=== PATIENT | female | born 1945 | race Caucasian/White ===

== ENCOUNTER 2020-03-29 14:35 | Outpatient (CLI) | payer MEDICARE ==
--- NOTE | 2020-03-29 15:41 | MRI ---
MRI Lumbar Spine Noncontrast: HISTORY: Spinal stenosis, lumbar region. Patient complains of chronic low back pain and bilateral leg pain. COMPARISON: None FINDINGS: The visualized retroperitoneal structures demonstrate a normal appearance. Conus medullaris is normal in morphology and terminates at the L1 level. Midline incision low back is present. Postoperative changes are seen involving the lower lumbar spine with metallic susceptibility artifact at the L4-5 level related to bipedicular screws and posterior rods transfixing this level. There is an incompletely imaged area of increased T2 and corresponding decreased T1-weighted signal i ntensity in the left iliac bone at the level of the sacroiliac joint. This could be related to postoperative changes and prior bone harvest site, but clinical correlation is recommended as this is incompletely imaged. L1-2: Mild disc osteophyte complex is present. Central spinal canal and neural foramina are patent. L2-3: Minimal disc osteophyte complex, facet hypertrophic changes, and ligamentous thickening. There is no significant central canal or left neural foraminal narrowing, but there is mild narrowing of the inferior aspect of the right neural foramen. L3-4: Grade 1 anterolisthesis at this level measuring approximately 6 mm. Broad-based disc osteophyte complex is present with prominent ligamentous thickening. Findings result in severe central canal narrowing at this level with severe narrowing of the lateral recesses. Mild to moderate right and mil d left-sided neural foraminal narrowing are present. L4-5: Level of postoperative changes related to posterior fusion. Laminectomy defects are present at this level. There does appear to be trace anterolisthesis of L4 on L5. Loss of intervertebral disc height is present with minimal disc osteophyte complex present. Central spinal canal at this level is patent. Neural foramina also appear patent at this level. L5-S1: Minimal disc osteophyte complex with tiny annular tear involving the right posterolateral aspe ct of the disc margin. Neural foramina are patent. IMPRESSION: 1. Prominent degenerative changes at the L3-4 level with grade 1 anterolisthesis of L3 on L4. Finding s result in severe central canal narrowing as well as appears to be severe narrowing of the subarticular zones. 2. Postoperative changes L4-5 level related to posterior fusion. 3. T2 hyperintense signal abnormality in the left iliac bone adjacent to the level of the sacroiliac joint which may be related to prior bone harvest site. However, if the patient has not had prior surgery in this region, CT scan pelvis is suggested for further evaluation.
== END 2020-03-29 14:36 | disposition home or self-care (01) ==
LOC: TBSIIMAG 14:35
PROVIDERS: ATTEND Nurse Practitioner Family
DX: M48.062 Spinal stenosis, lumbar region with neurogenic claudication (principal); M47.816 Spondylosis without myelopathy or radiculopathy, lumbar region; M43.16 Spondylolisthesis, lumbar region; Z98.890 Other specified postprocedural states
CPT/HCPCS: 72148

== ENCOUNTER 2020-05-24 13:26 | Outpatient (CLI) | payer MEDICARE | END 2020-05-24 13:27 | disposition home or self-care (01) | LOC: TBSIIMAG 13:26 | PROVIDERS: ATTEND Surgery | DX: M54.16 Radiculopathy, lumbar region (principal); M43.16 Spondylolisthesis, lumbar region; M48.061 Spinal stenosis, lumbar region without neurogenic claudication; Z98.1 Arthrodesis status | CPT/HCPCS: 72131 ==

== ENCOUNTER 2020-06-28 08:38 | Outpatient (CLI) | payer MEDICARE ==
[2020-06-28 10:35] LABS: Hemoglobin 12.9 g/dL (12.0-15.5); Mean Corpuscular Volume 90.2 fl (81.6-98.3); Mean Platelet Volume 12.3 fl (7.4-10.4); Platelet Count 122 10x3/uL (150-450); RBC Distribution Width 14.5 % (11.5-14.5); Red Blood Cell (RBC) Count 4.61 10x6/uL (3.90-5.03); White Blood Cell (WBC) Count 3.5 10x3/uL (3.5-10.5)
[2020-06-28 10:50] LABS: INR-International Normal Ratio 1.1; PTT 33.4 sec (22.0-33.0); Prothrombin Time 11.8 sec (9.5-12.1)
[2020-06-28 11:18] LABS: Calcium 9.3 mg/dL (7.8-10.44); Chloride 103 mmol/L (98-107); Glucose 64 mg/dL (83-110); Potassium 4.3 mmol/L (3.5-5.1); Sodium 142 mmol/L (136-145)
[2020-06-28 11:30] LABS: Anion Gap 15 mmol/L (10-20); BUN (Urea Nitrogen) 26 mg/dL (9.8-20.1); Calc. Creatinine Clearance 0 mL/min (70-130); Carbon Dioxide 28 mmol/L (23-31)
[2020-06-28 21:52] LABS: SARS-CoV-2 PCR by NAA Not Detected (NotDetected)
== END 2020-06-28 08:39 | disposition home or self-care (01) ==
LOC: LABBT 08:38
PROVIDERS: ATTEND Surgery
DX: Z01.818 Encounter for other preprocedural examination (principal); M48.062 Spinal stenosis, lumbar region with neurogenic claudication; M43.16 Spondylolisthesis, lumbar region; Z20.822 Contact with and (suspected) exposure to COVID-19
CPT/HCPCS: 80048; 85027; 85610; 85730; 93005; U0003; U0005; 87635; 93010

== ENCOUNTER 2020-07-02 07:42 | Day surgery (SDC) | payer MEDICARE ==
[2020-07-02] MEDS ORDERED: Lidocaine 1% PF 5 ML VIAL ONE (09:05)
[2020-07-02] MEDS ORDERED: Ketorolac Tromethamine 30 MG/ML VIAL ONE (09:05)
[2020-07-02] MEDS ORDERED: PHENYLEPHRINE-NS 100 MCG/ML 10 ML SYRINGE ONE (09:05)
[2020-07-02] MEDS ORDERED: Dexamethasone 20 MG/5 ML VIAL ONE (09:05)
[2020-07-02] MEDS ORDERED: PROPOFOL 200 MG/20 ML VIAL ONE (09:05)
[2020-07-02] MEDS ORDERED: Rocuronium Bromide 10 MG/ML (10ML VIAL) ONE (09:05)
[2020-07-02] MEDS ORDERED: Ondansetron PF 4 MG/2 ML Vial ONE (09:05)
[2020-07-02] MEDS ORDERED: Thrombin 5000 UNITS/5 ML VIAL ONE (09:30)
[2020-07-02] MEDS ORDERED: Fentanyl 100 MCG/2 ML VIAL ONE ×2 (11:37→13:15)
[2020-07-02] MEDS ORDERED: SUGAMMADEX SODIUM 200 MG/2 ML VIAL ONE (12:49)
[2020-07-02] MEDS ORDERED: Bisacodyl 10 MG SUPP PR PRN (13:07)
[2020-07-02] MEDS ORDERED: Acetaminophen 325 MG TAB PO PRN (13:07)
[2020-07-02] MEDS ORDERED: Morphine 2 MG/ML VIAL SLOW IVP PRN (13:07)
[2020-07-02] MEDS ORDERED: Milk Of Magnesia 30 ML UDCUP PO PRN (13:07)
[2020-07-02] MEDS ORDERED: Mag-Al 1200 mg/1200 mg/30 ML UDCUP PO PRN (13:07)
[2020-07-02] MEDS ORDERED: tiZANidine HCl 4 MG TAB PO PRN (13:07)
[2020-07-02] MEDS ORDERED: traMADol HCl 50 MG TAB PO PRN (13:07)
[2020-07-02] MEDS ORDERED: Acetaminophen/Codeine 30-300mg Tablet PO PRN (13:07)
[2020-07-02] MEDS ORDERED: Morphine Sulfate 2 MG/ML SYRINGE SLOW IVP PRN (13:26)
[2020-07-02] MEDS ORDERED: PACU-Morphine 4MG/ML VIAL SLOW IVP PRN (13:26)
[2020-07-02] MEDS ORDERED: Promethazine HCl 25 MG/ML VIAL SLOW IVP PRN (13:26)
[2020-07-02] MEDS ORDERED: HYDROmorphone 2 MG/ML VIAL SLOW IVP PRN (13:26)
[2020-07-02] MEDS ORDERED: Ondansetron HCl/PF 4 MG/2 ML Vial IVP PRN (13:26)
[2020-07-02] MEDS ORDERED: Promethazine HCl 25 MG/ML VIAL IM PRN (13:26)
[2020-07-02 15:22] VITALS: BMI 22.8
[2020-07-02] MEDS: Sodium Chloride 0.9% 1,000 ML IV SCH (15:58)
[2020-07-02] MEDS: HYDROcodone/Acetaminophen 7.5/325 mg Tablet PO PRN ×2 (16:03→20:54)
[2020-07-02] MEDS: CEFAZOLIN 2 GM in Premix Bag 1 BAG IVPB SCH (18:41)
[2020-07-02] MEDS: Mometasone 100 MCG/PUFF (1 INHALER) INH SCH (19:06)
[2020-07-02] MEDS: Pregabalin 75 MG CAP PO SCH (20:56)
[2020-07-03] MEDS: CEFAZOLIN 2 GM in Premix Bag 1 BAG IVPB SCH (01:48)
[2020-07-03] MEDS: Sodium Chloride 0.9% 1,000 ML IV SCH (03:45)
[2020-07-03] MEDS: Mometasone 100 MCG/PUFF (1 INHALER) INH SCH (07:12)
[2020-07-03 07:19] VITALS: BP 150/76; TEMP 98
[2020-07-03] MEDS: Pregabalin 75 MG CAP PO SCH (07:53)
[2020-07-03] MEDS: HYDROcodone/Acetaminophen 7.5/325 mg Tablet PO PRN (07:54)
[2020-07-03] MEDS ORDERED: DULoxetine 30 MG CAP PO SCH (09:00)
== END 2020-07-03 11:06 | disposition home or self-care (01) ==
LOC: SDC 07:42 → T4-B 13:07 → SDC 07-03 11:06
PROVIDERS: ATTEND Surgery
PROC: 01NB0ZZ Release Lumbar Nerve, Open Approach (ICD-10-PCS; principal; 2020-07-02)
DX: M48.062 Spinal stenosis, lumbar region with neurogenic claudication (principal); Z79.899 Other long term (current) drug therapy; Z88.1 Allergy status to other antibiotic agents; Z98.1 Arthrodesis status
CPT/HCPCS: 76000; 94640; J0690; J1100; J1885; J2405; J2704; J3010; J3370; J7620

== ENCOUNTER 2021-01-09 15:18 | Outpatient (CLI) | payer MEDICARE | END 2021-01-09 15:19 | disposition home or self-care (01) | LOC: BICMAMMO 15:18 | PROVIDERS: ATTEND Family Medicine | DX: Z12.31 Encounter for screening mammogram for malignant neoplasm of breast (principal) | CPT/HCPCS: 77063; 77067 ==

== ENCOUNTER 2021-10-24 13:12 | Inpatient (IN) | payer MEDICARE ==
[2021-10-24] MEDS ORDERED: cefTRIAXone\\ROCEPHIN 1 GM VIAL ONE (13:28)
[2021-10-24 14:05] LABS: Hemoglobin 11.7 g/dL (12.0-16.0); Mean Corpuscular HGB CONC 31.4 g/dL (32.0-36.0); Mean Corpuscular Volume 95.6 fL (78.0-98.0); Mean Platelet Volume 10.3 fL (7.4-10.4); Platelet Count 167 thou/uL (130-400); White Blood Cell (WBC) Count 24.2 thou/uL (4.8-10.8)
[2021-10-24 14:23] LABS: ALT (SGPT) 34 U/L (8-55); AST (SGOT) 49 U/L (5-34); Albumin 3.9 g/dL (3.4-4.8); Alkaline Phosphatase 105 U/L (40-110); Anion Gap 18 mmol/L (10-20); BUN (Urea Nitrogen) 44 mg/dL (9.8-20.1); Bilirubin, Total 1.5 mg/dL (0.2-1.2); Calc. Creatinine Clearance 0 mL/min (70-130); Calcium 9.7 mg/dL (7.8-10.44); Carbon Dioxide 19 mmol/L (23-31); Chloride 106 mmol/L (98-107); Estimated GFR 42; Globulin 3.3 g/dL (2.4-3.5); Glucose 94 mg/dL (83-110); Lipase 12 U/L (8-78); Potassium 4.2 mmol/L (3.5-5.1); Protein, Total 7.2 g/dL (5.8-8.1); Sodium 139 mmol/L (136-145)
[2021-10-24 14:27] LABS: Band 8 % (5-11); Eosinophils 6 % (0-10); Lymphocytes 1 % (21-51); MDiff Complete? YES; Monocytes 9 % (0-10); Myelocyte 1 % (0-0); Neutrophil 70 % (42-75); Platelet Morphology Comment Appears Adequate; Polychromasia SLIGHT = 2-3 cells (100X) (0-2/hpf); Reactive Lymphocytes 5 % (0-10)
[2021-10-24] MEDS ORDERED: Azithromycin 500 MG VIAL ONE (14:32)
[2021-10-24 15:45] LABS: SARS-CoV-2 NAA Rapid Test Not Detected (NotDetected)
[2021-10-24 17:00] LABS: Lactic Acid 2.2 mmol/L (0.5-2.2)
[2021-10-24] MEDS ORDERED: Bisacodyl 5 MG TAB PO PRN (21:40)
[2021-10-24] MEDS ORDERED: Calcium Carbonate 500 MG ChewTAB PO PRN (21:40)
[2021-10-24] MEDS ORDERED: Senokot S 8.6-50 MG TAB PO PRN (21:40)
[2021-10-24] MEDS ORDERED: VANCOMYCIN 1.25 GM/250 ML BAG 1.25 GM in Premix Bag 1 BAG IVPB SCH (22:00)
[2021-10-24 22:08] LABS: Hemoglobin 10.6 g/dL (12.0-16.0); Mean Corpuscular HGB CONC 30.5 g/dL (32.0-36.0); Mean Corpuscular Hemoglobin 29.2 pg (27.0-31.0); Mean Corpuscular Volume 95.8 fL (78.0-98.0); Mean Platelet Volume 9.4 fL (7.4-10.4); Platelet Count 158 thou/uL (130-400); Red Blood Cell (RBC) Count 3.61 mill/uL (4.20-5.40); White Blood Cell (WBC) Count 23.4 thou/uL (4.8-10.8)
[2021-10-24 22:28] LABS: ALT (SGPT) 31 U/L (8-55); AST (SGOT) 42 U/L (5-34); Albumin 3.5 g/dL (3.4-4.8); Alkaline Phosphatase 102 U/L (40-110); Anion Gap 14 mmol/L (10-20); BUN (Urea Nitrogen) 37 mg/dL (9.8-20.1); Bilirubin, Total 1.1 mg/dL (0.2-1.2); Calc. Creatinine Clearance 46 mL/min (70-130); Calcium 8.7 mg/dL (7.8-10.44); Carbon Dioxide 23 mmol/L (23-31); Chloride 107 mmol/L (98-107); Estimated GFR 59; Globulin 3.1 g/dL (2.4-3.5); Glucose 113 mg/dL (83-110); Protein, Total 6.6 g/dL (5.8-8.1); Sodium 140 mmol/L (136-145)
[2021-10-24 22:29] LABS: Band 8 % (5-11); Eosinophils 3 % (0-10); Lymphocytes 3 % (21-51); MDiff Complete? YES; Monocytes 9 % (0-10); Neutrophil 76 % (42-75); Reactive Lymphocytes 1 % (0-10)
[2021-10-25] MEDS: Cefepime 2 GM in Sodium Chloride 0.9% 100 ML IVPB SCH ×3 (01:07→23:09)
[2021-10-25] MEDS: methylPREDNISolone Sod Succ 40 MG VIAL IVP SCH ×4 (02:22→19:24)
[2021-10-25 06:06] LABS: Hemoglobin 11.3 g/dL (12.0-16.0); Mean Corpuscular HGB CONC 30.8 g/dL (32.0-36.0); Mean Corpuscular Volume 97.4 fL (78.0-98.0); Mean Platelet Volume 9.9 fL (7.4-10.4); Platelet Count 130 thou/uL (130-400); RBC Distribution Width 13.2 % (11.5-14.5); Red Blood Cell (RBC) Count 3.77 mill/uL (4.20-5.40); White Blood Cell (WBC) Count 22.7 thou/uL (4.8-10.8)
[2021-10-25 06:09] LABS: Band 7 % (5-11); Eosinophils 1 % (0-10); Lymphocytes 2 % (21-51); MDiff Complete? YES; Monocytes 4 % (0-10); Neutrophil 86 % (42-75)
[2021-10-25 06:13] LABS: Anion Gap 19 mmol/L (10-20); BUN (Urea Nitrogen) 24 mg/dL (9.8-20.1); Calc. Creatinine Clearance 60 mL/min (70-130); Calcium 8.5 mg/dL (7.8-10.44); Carbon Dioxide 13 mmol/L (23-31); Chloride 111 mmol/L (98-107); Estimated GFR 81; Glucose 103 mg/dL (83-110); Potassium 5.5 mmol/L (3.5-5.1); Sodium 137 mmol/L (136-145)
[2021-10-25] MEDS: Enoxaparin Sodium 40 MG/0.4 ML SYRINGE SC SCH (08:40)
[2021-10-25] MEDS ORDERED: Vancomycin HCl 1 GM in Sodium Chloride 0.9% 250 ML 300 ML IVPB SCH (09:00)
[2021-10-25 10:53] LABS: Actual Bicarbonate (HCO3a) 20.2 mEq/L (22-28); Base Excess (BEa) -4.1 mEq/L (-2.0 to +3.0); CO2 Tension 34.1 mmHg (35.0-45.0); Calcium, Ionized (arterial) 1.15 mmol/L (1.12-1.30); Carboxyhemoglobin (COHb) 0.2 gm% (0.0-3.0); pH, Arterial 7.39 (7.35-7.45)
[2021-10-25] MEDS: Sodium Chloride 0.45% 1,000 ML IV SCH ×2 (11:15→19:38)
[2021-10-25 11:54] LABS: O2 Tension (PaO2), arterial 43.7 mmHg (> 70.0)
[2021-10-25 11:55] LABS: ALV-art Gradient 227.395 mmHg (0-20); Puncture Site LRA
[2021-10-25] MEDS: HYDROcodone/Acetaminophen 5/325 mg Tablet PO PRN ×2 (12:32→21:12)
[2021-10-25] MEDS: Azithromycin 500 MG in Sodium Chloride 0.9% 250 ML 250 ML IVPB SCH (15:59)
[2021-10-25] MEDS ORDERED: Vancomycin HCl 750 MG in Sodium Chloride 0.9% 250 ML 250 ML IVPB SCH (20:00)
[2021-10-26] MEDS: methylPREDNISolone Sod Succ 40 MG VIAL IVP SCH ×4 (01:48→20:53)
[2021-10-26 03:48] LABS: Actual Bicarbonate (HCO3a) 20.6 mEq/L (22-28); CO2 Tension 31.9 mmHg (35.0-45.0); Calcium, Ionized (arterial) 1.17 mmol/L (1.12-1.30); Carboxyhemoglobin (COHb) 0.2 gm% (0.0-3.0); Hemoglobin (Hb) 11.2 g/dL (12.0-16.0); O2 Tension (PaO2), arterial 71.5 mmHg (> 70.0); Potassium - ABG Lab 3.51 mmol/L (3.70-5.30); pH, Arterial 7.43 (7.35-7.45)
[2021-10-26 03:49] LABS: ALV-art Gradient 387.725 mmHg (0-20); Puncture Site RRA
[2021-10-26 04:16] LABS: Anion Gap 16 mmol/L (10-20); BUN (Urea Nitrogen) 19 mg/dL (9.8-20.1); Calc. Creatinine Clearance 79 mL/min (70-130); Calcium 8.7 mg/dL (7.8-10.44); Carbon Dioxide 21 mmol/L (23-31); Chloride 110 mmol/L (98-107); Estimated GFR 93; Glucose 145 mg/dL (83-110); Magnesium 1.7 mg/dL (1.6-2.6); Potassium 3.6 mmol/L (3.5-5.1); Sodium 143 mmol/L (136-145)
[2021-10-26] MEDS: Sodium Chloride 0.45% 1,000 ML IV SCH ×3 (04:26→21:37)
[2021-10-26 06:30] LABS: Band 28 % (5-11); Hemoglobin 10.4 g/dL (12.0-16.0); Lymphocytes 6 % (21-51); MDiff Complete? YES; Mean Corpuscular Hemoglobin 30.7 pg (27.0-31.0); Mean Corpuscular Volume 93.1 fL (78.0-98.0); Mean Platelet Volume 9.3 fL (7.4-10.4); Monocytes 6 % (0-10); Neutrophil 60 % (42-75); Platelet Count 196 thou/uL (130-400); RBC Distribution Width 12.7 % (11.5-14.5); Red Blood Cell (RBC) Count 3.39 mill/uL (4.20-5.40)
[2021-10-26] MEDS ORDERED: Propofol 1,000 MG/100 ML VIAL IV ONE (07:11)
[2021-10-26] MEDS ORDERED: Midazolam HCl 2 mg/2 ml Vial ONE (07:26)
[2021-10-26] MEDS ORDERED: Midazolam HCl 2 mg/2 ml Vial IVP SCH (08:00)
[2021-10-26] MEDS ORDERED: Fentanyl BOLUS 250 ML IVPB PRN (08:00)
[2021-10-26] MEDS ORDERED: Morphine 4 MG/ML VIAL SLOW IVP PRN (08:00)
[2021-10-26] MEDS ORDERED: Lorazepam 2 MG/ML VIAL SLOW IVP PRN (08:00)
[2021-10-26] MEDS ORDERED: Propofol BOLUS 1,000 MG/100 ML VIAL IV PRN (08:00)
[2021-10-26] MEDS ORDERED: DISCONTINUE PREVIOUS NARCOTIC PAIN MEDICATIONS AND BENZODIAZEPINES FS SCH (08:00)
[2021-10-26 08:21] LABS: Actual Bicarbonate (HCO3a) 18.4 mEq/L (22-28); Base Excess (BEa) -6.1 mEq/L (-2.0 to +3.0); CO2 Tension 33.7 mmHg (35.0-45.0); Calcium, Ionized (arterial) 1.18 mmol/L (1.12-1.30); Carboxyhemoglobin (COHb) 0.7 gm% (0.0-3.0); Hemoglobin (Hb) 14.7 g/dL (12.0-16.0); O2 Tension (PaO2), arterial 72.6 mmHg (> 70.0); Potassium - ABG Lab 3.73 mmol/L (3.70-5.30); pH, Arterial 7.36 (7.35-7.45)
[2021-10-26 08:26] LABS: Puncture Site RRA
[2021-10-26 08:27] LABS: ALV-art Gradient 491.325 mmHg (0-20)
[2021-10-26] MEDS: Enoxaparin Sodium 40 MG/0.4 ML SYRINGE SC SCH (09:56)
[2021-10-26] MEDS ORDERED: Morphine 2 MG/ML VIAL SLOW IVP PRN (11:15)
[2021-10-26] MEDS: Fentanyl CADD 100 ML IV SCH (11:36)
[2021-10-26] MEDS: Cefepime 2 GM in Sodium Chloride 0.9% 100 ML IVPB SCH ×2 (12:02→23:30)
[2021-10-26] MEDS: Azithromycin 500 MG in Sodium Chloride 0.9% 250 ML 250 ML IVPB SCH (15:36)
[2021-10-26 19:09] LABS: Vancomycin, Trough 4.1 ug/mL
[2021-10-26] MEDS: Vancomycin HCl 750 MG in Sodium Chloride 0.9% 250 ML 250 ML IVPB SCH (20:53)
[2021-10-27] MEDS: methylPREDNISolone Sod Succ 40 MG VIAL IVP SCH ×4 (01:09→19:52)
[2021-10-27] MEDS: Propofol 1,000 MG/100 ML VIAL IV PRN ×3 (02:05→18:20)
[2021-10-27] MEDS: Sodium Chloride 0.45% 1,000 ML IV SCH ×3 (05:31→18:19)
[2021-10-27] MEDS: Enoxaparin Sodium 40 MG/0.4 ML SYRINGE SC SCH (08:08)
[2021-10-27] MEDS: Vancomycin HCl 750 MG in Sodium Chloride 0.9% 250 ML 250 ML IVPB SCH (08:09)
[2021-10-27 08:42] LABS: Anion Gap 14 mmol/L (10-20); BUN (Urea Nitrogen) 19 mg/dL (9.8-20.1); Calc. Creatinine Clearance 83 mL/min (70-130); Calcium 8.6 mg/dL (7.8-10.44); Carbon Dioxide 19 mmol/L (23-31); Chloride 109 mmol/L (98-107); Estimated GFR 92; Glucose 143 mg/dL (83-110); Potassium 3.9 mmol/L (3.5-5.1); Sodium 138 mmol/L (136-145)
[2021-10-27 08:55] LABS: Band 14 % (5-11); Hemoglobin 9.3 g/dL (12.0-16.0); Hypochromia SLIGHT = 6-15 cells (100X) (0-5/hpf); Lymphocytes 2 % (21-51); MDiff Complete? YES; Mean Corpuscular HGB CONC 30.9 g/dL (32.0-36.0); Mean Corpuscular Hemoglobin 29.3 pg (27.0-31.0); Mean Corpuscular Volume 94.9 fL (78.0-98.0); Mean Platelet Volume 9.1 fL (7.4-10.4); Monocytes 5 % (0-10); Neutrophil 78 % (42-75); Nucleated RBC 1 % (0); Platelet Count 169 thou/uL (130-400); Platelet Morphology Comment Appears Adequate; Polychromasia MODERATE = 3-4 cells (100X) (0-2/hpf); RBC Distribution Width 12.9 % (11.5-14.5); Reactive Lymphocytes 1 % (0-10); Red Blood Cell (RBC) Count 3.17 mill/uL (4.20-5.40); White Blood Cell (WBC) Count 19.5 thou/uL (4.8-10.8)
[2021-10-27] MEDS: Cefepime 2 GM in Sodium Chloride 0.9% 100 ML IVPB SCH ×2 (12:08→19:52)
[2021-10-27] MEDS ORDERED: Fentanyl CADD 100 ML ONE (16:40)
[2021-10-27] MEDS: Azithromycin 500 MG in Sodium Chloride 0.9% 250 ML 250 ML IVPB SCH (16:43)
[2021-10-28] MEDS: Propofol 1,000 MG/100 ML VIAL IV PRN ×3 (02:08→17:47)
[2021-10-28] MEDS: methylPREDNISolone Sod Succ 40 MG VIAL IVP SCH ×4 (02:08→20:38)
[2021-10-28] MEDS: Cefepime 2 GM in Sodium Chloride 0.9% 100 ML IVPB SCH ×3 (03:12→20:37)
[2021-10-28] MEDS: Sodium Chloride 0.45% 1,000 ML IV SCH ×2 (03:49→09:02)
[2021-10-28 06:59] LABS: Anion Gap 13 mmol/L (10-20); BUN (Urea Nitrogen) 25 mg/dL (9.8-20.1); Calc. Creatinine Clearance 86 mL/min (70-130); Calcium 8.6 mg/dL (7.8-10.44); Carbon Dioxide 19 mmol/L (23-31); Chloride 111 mmol/L (98-107); Estimated GFR 92; Glucose 162 mg/dL (83-110); Potassium 3.8 mmol/L (3.5-5.1); Sodium 139 mmol/L (136-145)
[2021-10-28 07:05] LABS: Band 4 % (5-11); Lymphocytes 36 % (21-51); MDiff Complete? YES; Mean Corpuscular HGB CONC 33.7 g/dL (32.0-36.0); Mean Corpuscular Hemoglobin 31.4 pg (27.0-31.0); Mean Platelet Volume 9.4 fL (7.4-10.4); Monocytes 4 % (0-10); Neutrophil 55 % (42-75); Platelet Count 162 thou/uL (130-400); Promyelocytes 1 % (0-0); RBC Distribution Width 13.1 % (11.5-14.5); Red Blood Cell (RBC) Count 2.85 mill/uL (4.20-5.40); White Blood Cell (WBC) Count 26.3 thou/uL (4.8-10.8)
[2021-10-28] MEDS: Enoxaparin Sodium 40 MG/0.4 ML SYRINGE SC SCH (09:02)
[2021-10-28] MEDS: Pantoprazole 40 MG VIAL IVP SCH (09:02)
[2021-10-28] MEDS: Azithromycin 500 MG in Sodium Chloride 0.9% 250 ML 250 ML IVPB SCH (15:53)
[2021-10-28] MEDS ORDERED: Midazolam HCl 2 mg/2 ml Vial SLOW IVP PRN (16:45)
[2021-10-29] MEDS: Propofol 1,000 MG/100 ML VIAL IV PRN ×3 (01:43→17:41)
[2021-10-29] MEDS: methylPREDNISolone Sod Succ 40 MG VIAL IVP SCH ×4 (01:43→21:19)
[2021-10-29] MEDS: Sodium Chloride 0.45% 1,000 ML IV SCH (03:17)
[2021-10-29] MEDS: Cefepime 2 GM in Sodium Chloride 0.9% 100 ML IVPB SCH ×3 (03:17→21:19)
[2021-10-29 04:11] LABS: Anion Gap 13 mmol/L (10-20); BUN (Urea Nitrogen) 22 mg/dL (9.8-20.1); Calc. Creatinine Clearance 94 mL/min (70-130); Calcium 8.1 mg/dL (7.8-10.44); Carbon Dioxide 23 mmol/L (23-31); Chloride 109 mmol/L (98-107); Estimated GFR 94; Glucose 133 mg/dL (83-110); Potassium 3.8 mmol/L (3.5-5.1); Sodium 141 mmol/L (136-145)
[2021-10-29 04:36] LABS: Band 18 % (5-11); Hemoglobin 10.2 g/dL (12.0-16.0); MDiff Complete? YES; Mean Corpuscular HGB CONC 30.5 g/dL (32.0-36.0); Mean Corpuscular Volume 94.9 fL (78.0-98.0); Mean Platelet Volume 9.7 fL (7.4-10.4); Metamyelocyte 2 % (0-0); Monocytes 11 % (0-10); Neutrophil 69 % (42-75); Platelet Count 140 thou/uL (130-400); RBC Distribution Width 13.4 % (11.5-14.5); Red Blood Cell (RBC) Count 3.51 mill/uL (4.20-5.40); White Blood Cell (WBC) Count 38.8 thou/uL (4.8-10.8)
[2021-10-29 07:03] LABS: Base Excess (BEa) 3.4 mEq/L (-2.0 to +3.0); CO2 Tension 37.2 mmHg (35.0-45.0); Calcium, Ionized (arterial) 1.18 mmol/L (1.12-1.30); Carboxyhemoglobin (COHb) 0.2 gm% (0.0-3.0); Hemoglobin (Hb) 10.2 g/dL (12.0-16.0); O2 Tension (PaO2), arterial 66.2 mmHg (> 70.0); Potassium - ABG Lab 3.45 mmol/L (3.70-5.30); pH, Arterial 7.48 (7.35-7.45)
[2021-10-29 07:25] LABS: Puncture Site RRA
[2021-10-29] MEDS: Pantoprazole 40 MG VIAL IVP SCH (09:39)
[2021-10-29] MEDS: Enoxaparin Sodium 40 MG/0.4 ML SYRINGE SC SCH (09:39)
[2021-10-29] MEDS: Vancomycin 1.5 GRAM/300 ML BAG 1.5 GM in Premix Bag 1 BAG IVPB SCH (09:40)
[2021-10-29] MEDS ORDERED: Fentanyl CADD 100 ML ONE (14:40)
[2021-10-29] MEDS: Fentanyl CADD 100 ML IV SCH (14:43)
[2021-10-29] MEDS: Azithromycin 500 MG in Sodium Chloride 0.9% 250 ML 250 ML IVPB SCH (16:50)
[2021-10-29] MEDS: Acetaminophen 325 MG TAB PO PRN (23:08)
[2021-10-30] MEDS: Sodium Chloride 0.45% 1,000 ML IV SCH (01:28)
[2021-10-30] MEDS: Propofol 1,000 MG/100 ML VIAL IV PRN ×3 (03:06→21:40)
[2021-10-30] MEDS: Cefepime 2 GM in Sodium Chloride 0.9% 100 ML IVPB SCH ×3 (03:06→21:40)
[2021-10-30 06:09] LABS: Anion Gap 13 mmol/L (10-20); BUN (Urea Nitrogen) 22 mg/dL (9.8-20.1); Calc. Creatinine Clearance 92 mL/min (70-130); Calcium 8.4 mg/dL (7.8-10.44); Carbon Dioxide 24 mmol/L (23-31); Chloride 103 mmol/L (98-107); Estimated GFR 94; Glucose 135 mg/dL (83-110); Magnesium 1.9 mg/dL (1.6-2.6); Potassium 3.5 mmol/L (3.5-5.1); Sodium 136 mmol/L (136-145)
[2021-10-30 06:35] LABS: Hemoglobin 9.8 g/dL (12.0-16.0); Mean Corpuscular HGB CONC 30.6 g/dL (32.0-36.0); Mean Corpuscular Hemoglobin 28.7 pg (27.0-31.0); Mean Corpuscular Volume 93.9 fL (78.0-98.0); Red Blood Cell (RBC) Count 3.41 mill/uL (4.20-5.40); White Blood Cell (WBC) Count 59.2 thou/uL (4.8-10.8)
[2021-10-30 07:34] LABS: Band 17 % (5-11); Lymphocytes 3 % (21-51); MDiff Complete? YES; Mean Platelet Volume 10.5 fL (7.4-10.4); Metamyelocyte 2 % (0-0); Monocytes 12 % (0-10); Neutrophil 66 % (42-75); Platelet Count 98 thou/uL (130-400); Platelet Morphology Comment Appears Decreased; Polychromasia SLIGHT = 2-3 cells (100X) (0-2/hpf); RBC Distribution Width 13.5 % (11.5-14.5)
[2021-10-30 07:58] LABS: Actual Bicarbonate (HCO3a) 29.5 mEq/L (22-28); Base Excess (BEa) 6.4 mEq/L (-2.0 to +3.0); CO2 Tension 36.9 mmHg (35.0-45.0); Calcium, Ionized (arterial) 1.13 mmol/L (1.12-1.30); Carboxyhemoglobin (COHb) 0.4 gm% (0.0-3.0); Hemoglobin (Hb) 10.1 g/dL (12.0-16.0); O2 Tension (PaO2), arterial 62.3 mmHg (> 70.0); Potassium - ABG Lab 3.37 mmol/L (3.70-5.30); pH, Arterial 7.52 (7.35-7.45)
[2021-10-30 08:16] LABS: Puncture Site LRA
[2021-10-30 08:17] LABS: ALV-art Gradient 176.775 mmHg (0-20)
[2021-10-30] MEDS: methylPREDNISolone Sod Succ 40 MG VIAL IVP SCH ×2 (09:50→21:40)
[2021-10-30] MEDS: Enoxaparin Sodium 40 MG/0.4 ML SYRINGE SC SCH (10:01)
[2021-10-30] MEDS: Pantoprazole 40 MG VIAL IVP SCH (10:01)
[2021-10-30] MEDS: Vancomycin 1.5 GRAM/300 ML BAG 1.5 GM in Premix Bag 1 BAG IVPB SCH (11:03)
[2021-10-30] MEDS: Azithromycin 500 MG in Sodium Chloride 0.9% 250 ML 250 ML IVPB SCH (14:57)
[2021-10-31] MEDS: Propofol 1,000 MG/100 ML VIAL IV PRN (03:03)
[2021-10-31] MEDS: Cefepime 2 GM in Sodium Chloride 0.9% 100 ML IVPB SCH ×3 (03:03→19:58)
[2021-10-31 04:11] LABS: Hemoglobin 9.5 g/dL (12.0-16.0); Mean Corpuscular Hemoglobin 28.8 pg (27.0-31.0); Mean Corpuscular Volume 93.1 fL (78.0-98.0); Mean Platelet Volume 11.1 fL (7.4-10.4); Platelet Count 84 thou/uL (130-400); RBC Distribution Width 13.4 % (11.5-14.5)
[2021-10-31 04:27] LABS: Anion Gap 14 mmol/L (10-20); BUN (Urea Nitrogen) 26 mg/dL (9.8-20.1); Calc. Creatinine Clearance 96 mL/min (70-130); Carbon Dioxide 28 mmol/L (23-31); Chloride 102 mmol/L (98-107); Potassium 3.5 mmol/L (3.5-5.1); Sodium 140 mmol/L (136-145)
[2021-10-31 04:28] LABS: Calcium 8.1 mg/dL (7.8-10.44); Estimated GFR 95; Glucose 159 mg/dL (83-110)
[2021-10-31 05:01] LABS: Band 29 % (5-11); Hypochromia SLIGHT = 6-15 cells (100X) (0-5/hpf); Lymphocytes 5 % (21-51); MDiff Complete? YES; Monocytes 14 % (0-10); Neutrophil 50 % (42-75); Platelet Morphology Comment Appears Decreased; Reactive Lymphocytes 2 % (0-10)
[2021-10-31 07:30] LABS: Actual Bicarbonate (HCO3a) 29.8 mEq/L (22-28); Analyzer IN Cardio ER; Base Excess (BEa) 6.3 mEq/L (-2.0 to +3.0); CO2 Tension 38.6 mmHg (35.0-45.0); Calcium, Ionized (arterial) 1.12 mmol/L (1.12-1.30); Carboxyhemoglobin (COHb) 0.3 gm% (0.0-3.0); Hemoglobin (Hb) 10.5 g/dL (12.0-16.0); Potassium - ABG Lab 3.37 mmol/L (3.70-5.30); pH, Arterial 7.51 (7.35-7.45)
[2021-10-31 07:31] LABS: Puncture Site RRA
[2021-10-31 08:11] LABS: Vancomycin, Trough 7.6 ug/mL
[2021-10-31] MEDS: Enoxaparin Sodium 40 MG/0.4 ML SYRINGE SC SCH (09:41)
[2021-10-31] MEDS: Pantoprazole 40 MG VIAL IVP SCH (09:42)
[2021-10-31] MEDS: VANCOMYCIN 1.25 GM/250 ML BAG 1.25 GM in Premix Bag 1 BAG IVPB SCH ×2 (09:43→21:12)
[2021-10-31] MEDS: Azithromycin 500 MG in Sodium Chloride 0.9% 250 ML 250 ML IVPB SCH (16:30)
[2021-10-31] MEDS: Fentanyl CADD 100 ML IV SCH (19:07)
[2021-10-31] MEDS: Acetaminophen 325 MG TAB PO PRN (19:58)
[2021-11-01] MEDS: Propofol 1,000 MG/100 ML VIAL IV PRN (03:26)
[2021-11-01] MEDS: Cefepime 2 GM in Sodium Chloride 0.9% 100 ML IVPB SCH ×3 (03:26→20:24)
[2021-11-01 04:22] LABS: Mean Corpuscular HGB CONC 31.3 g/dL (32.0-36.0); Mean Corpuscular Hemoglobin 29.3 pg (27.0-31.0); Mean Corpuscular Volume 93.6 fL (78.0-98.0); Mean Platelet Volume 10.4 fL (7.4-10.4); Platelet Count 102 thou/uL (130-400); RBC Distribution Width 13.8 % (11.5-14.5); Red Blood Cell (RBC) Count 3.41 mill/uL (4.20-5.40); White Blood Cell (WBC) Count 49.2 thou/uL (4.8-10.8)
[2021-11-01 04:37] LABS: Anion Gap 12 mmol/L (10-20); BUN (Urea Nitrogen) 19 mg/dL (9.8-20.1); Calc. Creatinine Clearance 111 mL/min (70-130); Calcium 8.2 mg/dL (7.8-10.44); Carbon Dioxide 31 mmol/L (23-31); Chloride 99 mmol/L (98-107); Estimated GFR 98; Glucose 114 mg/dL (83-110); Sodium 139 mmol/L (136-145)
[2021-11-01 04:40] LABS: Band 11 % (5-11); Hypochromia SLIGHT = 6-15 cells (100X) (0-5/hpf); Lymphocytes 5 % (21-51); MDiff Complete? YES; Metamyelocyte 2 % (0-0); Monocytes 17 % (0-10); Myelocyte 2 % (0-0); Neutrophil 63 % (42-75); Platelet Morphology Comment Appears Decreased; Polychromasia SLIGHT = 2-3 cells (100X) (0-2/hpf); Tear Drops SLIGHT = 2-5 cells (100X) (0-1/hpf)
[2021-11-01 05:17] LABS: Magnesium 1.9 mg/dL (1.6-2.6)
[2021-11-01 05:29] LABS: Troponin I 0.437 ng/mL (< 0.028)
[2021-11-01] MEDS ORDERED: Magnesium 2 GM/50 ML(in water) 2 GM in Premix Bag 1 BAG IVPB SCH ×2 (05:45→08:00)
[2021-11-01] MEDS ORDERED: Potassium Bicarbonate/Cit Ac 20 MEQ TAB PER TUBE SCH (05:45)
[2021-11-01] MEDS ORDERED: Electrolyte Replacement Protocol FS PRN (05:45)
[2021-11-01 07:26] LABS: Actual Bicarbonate (HCO3a) 31.3 mEq/L (22-28); Base Excess (BEa) 8.1 mEq/L (-2.0 to +3.0); CO2 Tension 38.3 mmHg (35.0-45.0); Carboxyhemoglobin (COHb) 0.8 gm% (0.0-3.0); Hemoglobin (Hb) 12.5 g/dL (12.0-16.0); Potassium - ABG Lab 3.67 mmol/L (3.70-5.30); pH, Arterial 7.53 (7.35-7.45)
[2021-11-01 07:37] LABS: O2 Tension (PaO2), arterial 58.9 mmHg (> 70.0); Puncture Site RBA
[2021-11-01 07:38] LABS: ALV-art Gradient 178.425 mmHg (0-20)
[2021-11-01] MEDS ORDERED: Electrolyte Replacement Protocol 1 EACH FS SCH (08:01)
[2021-11-01 08:56] LABS: Critical Call Chem Troponin I RESULT DECREASING; Troponin I 0.382 ng/mL (< 0.028)
[2021-11-01] MEDS: Enoxaparin Sodium 40 MG/0.4 ML SYRINGE SC SCH (09:41)
[2021-11-01] MEDS: Pantoprazole 40 MG VIAL IVP SCH (09:41)
[2021-11-01] MEDS: VANCOMYCIN 1.25 GM/250 ML BAG 1.25 GM in Premix Bag 1 BAG IVPB SCH ×2 (09:41→22:14)
[2021-11-01 10:15] LABS: Potassium 3.5 mmol/L (3.5-5.1)
[2021-11-01] MEDS: Potassium Chloride 20 MEQ in Premix Bag 1 BAG IVPB SCH ×2 (13:30→16:11)
[2021-11-01] MEDS: Vancomycin 1.5 GRAM/300 ML BAG 1.5 GM in Premix Bag 1 BAG IVPB SCH (16:09)
[2021-11-02] MEDS: Micafungin 100 MG in Sodium Chloride 0.9% 100 ML IVPB SCH ×2 (01:00→11:00)
[2021-11-02] MEDS: Cefepime 2 GM in Sodium Chloride 0.9% 100 ML IVPB SCH (03:28)
[2021-11-02 04:18] LABS: Band 25 % (5-11); Hemoglobin 9.6 g/dL (12.0-16.0); Hypochromia SLIGHT = 6-15 cells (100X) (0-5/hpf); Lymphocytes 15 % (21-51); MDiff Complete? YES; Mean Corpuscular HGB CONC 30.8 g/dL (32.0-36.0); Mean Corpuscular Hemoglobin 28.8 pg (27.0-31.0); Mean Corpuscular Volume 93.6 fL (78.0-98.0); Mean Platelet Volume 11.3 fL (7.4-10.4); Metamyelocyte 1 % (0-0); Monocytes 14 % (0-10); Neutrophil 44 % (42-75); Platelet Count 105 thou/uL (130-400); Platelet Morphology Comment Appears Decreased; RBC Distribution Width 13.6 % (11.5-14.5); Reactive Lymphocytes 1 % (0-10); Red Blood Cell (RBC) Count 3.33 mill/uL (4.20-5.40); White Blood Cell (WBC) Count 43.1 thou/uL (4.8-10.8)
[2021-11-02 04:20] LABS: Anion Gap 10 mmol/L (10-20); BUN (Urea Nitrogen) 22 mg/dL (9.8-20.1); Calc. Creatinine Clearance 111 mL/min (70-130); Calcium 8.2 mg/dL (7.8-10.44); Carbon Dioxide 34 mmol/L (23-31); Chloride 98 mmol/L (98-107); Estimated GFR 99; Glucose 122 mg/dL (83-110); Magnesium 2.2 mg/dL (1.6-2.6); Potassium 3.6 mmol/L (3.5-5.1); Sodium 138 mmol/L (136-145)
[2021-11-02] MEDS: Propofol 1,000 MG/100 ML VIAL IV PRN (06:08)
[2021-11-02 07:11] LABS: Actual Bicarbonate (HCO3a) 32.4 mEq/L (22-28); Base Excess (BEa) 8.6 mEq/L (-2.0 to +3.0); CO2 Tension 41.4 mmHg (35.0-45.0); Calcium, Ionized (arterial) 1.07 mmol/L (1.12-1.30); O2 Tension (PaO2), arterial 63.8 mmHg (> 70.0); pH, Arterial 7.51 (7.35-7.45)
[2021-11-02 07:20] LABS: Puncture Site RRA
[2021-11-02] MEDS ORDERED: Vecuronium 10 MG VIAL IVP PRN (08:02)
[2021-11-02] MEDS ORDERED: Sterile Water 10 ML ONE (08:51)
[2021-11-02] MEDS ORDERED: Vecuronium 10 MG VIAL ONE (08:52)
[2021-11-02] MEDS: VANCOMYCIN 1.25 GM/250 ML BAG 1.25 GM in Premix Bag 1 BAG IVPB SCH ×2 (09:27→21:39)
[2021-11-02] MEDS: Enoxaparin Sodium 40 MG/0.4 ML SYRINGE SC SCH (09:29)
[2021-11-02] MEDS: Pantoprazole 40 MG VIAL IVP SCH (09:29)
[2021-11-02] MEDS: Oxymetazoline HCl 0.05% (30 ML BOT) NS SCH ×2 (11:38→21:39)
[2021-11-02] MEDS ORDERED: Meropenem 2 GM in Sodium Chloride 0.9% 100 ML IVPB SCH (14:00)
[2021-11-02] MEDS ORDERED: Meropenem 1 GM in Sodium Chloride 0.9% 100 ML IVPB SCH (14:00)
[2021-11-02] MEDS ORDERED: AFRIN NASAL MIST 15 ML BOT NS SCH (21:00)
[2021-11-02] MEDS: Acetaminophen 325 MG TAB PO PRN (21:36)
[2021-11-02] MEDS: Meropenem 1 GM in Sodium Chloride 0.9% 100 ML IVPB SCH (21:37)
[2021-11-02] MEDS: Fluticasone Propionate Nasal Spray 16 gm Bottle NASAL SCH (21:39)
[2021-11-03 03:55] LABS: Anion Gap 11 mmol/L (10-20); BUN (Urea Nitrogen) 21 mg/dL (9.8-20.1); Calc. Creatinine Clearance 113 mL/min (70-130); Calcium 8.3 mg/dL (7.8-10.44); Carbon Dioxide 34 mmol/L (23-31); Chloride 99 mmol/L (98-107); Estimated GFR 99; Glucose 132 mg/dL (83-110); Potassium 3.5 mmol/L (3.5-5.1); Sodium 140 mmol/L (136-145)
[2021-11-03 03:59] LABS: Band 16 % (5-11); Eosinophils 1 % (0-10); Hemoglobin 9.3 g/dL (12.0-16.0); Hypochromia SLIGHT = 6-15 cells (100X) (0-5/hpf); Lymphocytes 13 % (21-51); MDiff Complete? YES; Mean Corpuscular HGB CONC 31.6 g/dL (32.0-36.0); Mean Corpuscular Hemoglobin 29.6 pg (27.0-31.0); Mean Corpuscular Volume 93.6 fL (78.0-98.0); Mean Platelet Volume 10.8 fL (7.4-10.4); Metamyelocyte 3 % (0-0); Monocytes 12 % (0-10); Myelocyte 2 % (0-0); Neutrophil 53 % (42-75); Platelet Count 112 thou/uL (130-400); Platelet Morphology Comment Appears Decreased; Polychromasia SLIGHT = 2-3 cells (100X) (0-2/hpf); RBC Distribution Width 13.8 % (11.5-14.5); Red Blood Cell (RBC) Count 3.13 mill/uL (4.20-5.40); Tear Drops SLIGHT = 2-5 cells (100X) (0-1/hpf); White Blood Cell (WBC) Count 43.6 thou/uL (4.8-10.8)
[2021-11-03] MEDS: Meropenem 1 GM in Sodium Chloride 0.9% 100 ML IVPB SCH ×3 (05:44→22:18)
[2021-11-03] MEDS: Propofol 1,000 MG/100 ML VIAL IV PRN (05:44)
[2021-11-03 07:00] LABS: Actual Bicarbonate (HCO3a) 27.5 mEq/L (22-28); Base Excess (BEa) 5.1 mEq/L (-2.0 to +3.0); CO2 Tension 33.7 mmHg (35.0-45.0); Calcium, Ionized (arterial) 1.14 mmol/L (1.12-1.30); O2 Tension (PaO2), arterial 66.5 mmHg (> 70.0); Potassium - ABG Lab 3.54 mmol/L (3.70-5.30); pH, Arterial 7.53 (7.35-7.45)
[2021-11-03 07:01] LABS: ALV-art Gradient 176.575 mmHg (0-20); Puncture Site RRA
[2021-11-03] MEDS ORDERED: Vecuronium 10 MG VIAL IVP SCH (09:00)
[2021-11-03] MEDS ORDERED: Labetalol HCl 100 MG/20 ML VIAL SLOW IVP PRN (09:34)
[2021-11-03] MEDS ORDERED: Racepinephrine 2.25% 0.5 ML NEB ONE (09:52)
[2021-11-03] MEDS: VANCOMYCIN 1.25 GM/250 ML BAG 1.25 GM in Premix Bag 1 BAG IVPB SCH ×2 (10:57→20:58)
[2021-11-03] MEDS: Potassium Chloride 20 MEQ in Premix Bag 1 BAG IVPB SCH ×2 (10:57→13:15)
[2021-11-03] MEDS: Lansoprazole 3 MG/ML ORAL SUSPENSION PER TUBE SCH (10:57)
[2021-11-03] MEDS: Enoxaparin Sodium 40 MG/0.4 ML SYRINGE SC SCH (10:57)
[2021-11-03] MEDS: Oxymetazoline HCl 0.05% (30 ML BOT) NS SCH ×2 (10:58→20:47)
[2021-11-03] MEDS: Micafungin 100 MG in Sodium Chloride 0.9% 100 ML IVPB SCH (11:18)
[2021-11-03] MEDS: Fluticasone Propionate Nasal Spray 16 gm Bottle NASAL SCH ×3 (15:39→20:36)
[2021-11-03 20:48] LABS: Vancomycin, Trough 16.6 ug/mL
[2021-11-04 03:43] LABS: Hemoglobin 9.1 g/dL (12.0-16.0); Mean Corpuscular Hemoglobin 29.5 pg (27.0-31.0); Mean Corpuscular Volume 92.4 fL (78.0-98.0); Mean Platelet Volume 10.4 fL (7.4-10.4); Platelet Count 144 thou/uL (130-400); RBC Distribution Width 14.3 % (11.5-14.5); Red Blood Cell (RBC) Count 3.08 mill/uL (4.20-5.40)
[2021-11-04 03:57] LABS: Anion Gap 11 mmol/L (10-20); BUN (Urea Nitrogen) 16 mg/dL (9.8-20.1); Calc. Creatinine Clearance 112 mL/min (70-130); Calcium 8.2 mg/dL (7.8-10.44); Carbon Dioxide 30 mmol/L (23-31); Chloride 101 mmol/L (98-107); Estimated GFR 99; Glucose 126 mg/dL (83-110); Potassium 3.4 mmol/L (3.5-5.1); Sodium 139 mmol/L (136-145)
[2021-11-04 04:26] LABS: Band 12 % (5-11); Lymphocytes 6 % (21-51); MDiff Complete? YES; Metamyelocyte 2 % (0-0); Monocytes 20 % (0-10); Neutrophil 60 % (42-75); Nucleated RBC 3 % (0); Platelet Morphology Comment Appears Adequate; Poikilocytosis SLIGHT = 6-15 cells (100X) (0-5/hpf)
[2021-11-04] MEDS ORDERED: Potassium Bicarbonate/Cit Ac 20 MEQ TAB PER TUBE SCH (05:00)
[2021-11-04] MEDS: Meropenem 1 GM in Sodium Chloride 0.9% 100 ML IVPB SCH ×3 (05:57→22:49)
[2021-11-04] MEDS: VANCOMYCIN 1.25 GM/250 ML BAG 1.25 GM in Premix Bag 1 BAG IVPB SCH ×2 (10:02→21:05)
[2021-11-04] MEDS: Micafungin 100 MG in Sodium Chloride 0.9% 100 ML IVPB SCH (10:02)
[2021-11-04] MEDS: Lansoprazole 3 MG/ML ORAL SUSPENSION PER TUBE SCH (10:03)
[2021-11-04] MEDS: Oxymetazoline HCl 0.05% (30 ML BOT) NS SCH ×2 (10:03→21:05)
[2021-11-04] MEDS: Enoxaparin Sodium 40 MG/0.4 ML SYRINGE SC SCH (10:03)
[2021-11-04] MEDS: Fluticasone Propionate Nasal Spray 16 gm Bottle NASAL SCH ×2 (10:04→21:05)
[2021-11-04 13:15] VITALS: BMI 25.9
[2021-11-05 04:46] LABS: Anion Gap 12 mmol/L (10-20); BUN (Urea Nitrogen) 12 mg/dL (9.8-20.1); Calc. Creatinine Clearance 119 mL/min (70-130); Calcium 8.4 mg/dL (7.8-10.44); Carbon Dioxide 29 mmol/L (23-31); Chloride 101 mmol/L (98-107); Estimated GFR 100; Glucose 125 mg/dL (83-110); Potassium 3.2 mmol/L (3.5-5.1); Sodium 139 mmol/L (136-145)
[2021-11-05 05:21] LABS: Hemoglobin 9.2 g/dL (12.0-16.0); Mean Corpuscular HGB CONC 31.5 g/dL (32.0-36.0); Mean Corpuscular Hemoglobin 29.2 pg (27.0-31.0); Mean Corpuscular Volume 92.7 fL (78.0-98.0); Mean Platelet Volume 9.8 fL (7.4-10.4); Platelet Count 170 thou/uL (130-400); RBC Distribution Width 14.6 % (11.5-14.5); Red Blood Cell (RBC) Count 3.15 mill/uL (4.20-5.40); White Blood Cell (WBC) Count 31.8 thou/uL (4.8-10.8)
[2021-11-05 05:22] LABS: Anisocytosis SLIGHT = 6-15 cells (100X) (0-5/hpf); Band 10 % (5-11); Eosinophils 1 % (0-10); Hypochromia SLIGHT = 6-15 cells (100X) (0-5/hpf); Lymphocytes 5 % (21-51); MDiff Complete? YES; Metamyelocyte 3 % (0-0); Monocytes 32 % (0-10); Neutrophil 49 % (42-75); Platelet Morphology Comment Appears Adequate; Polychromasia SLIGHT = 2-3 cells (100X) (0-2/hpf)
[2021-11-05] MEDS: Meropenem 1 GM in Sodium Chloride 0.9% 100 ML IVPB SCH ×3 (06:15→22:21)
[2021-11-05 07:19] LABS: Actual Bicarbonate (HCO3a) 29.1 mEq/L (22-28); Base Excess (BEa) 6.5 mEq/L (-2.0 to +3.0); CO2 Tension 35.6 mmHg (35.0-45.0); Calcium, Ionized (arterial) 1.11 mmol/L (1.12-1.30); O2 Tension (PaO2), arterial 77.7 mmHg (> 70.0); pH, Arterial 7.53 (7.35-7.45)
[2021-11-05] MEDS ORDERED: Potassium Bicarbonate/Cit Ac 20 MEQ TAB PER TUBE SCH (08:00)
[2021-11-05] MEDS: Enoxaparin Sodium 40 MG/0.4 ML SYRINGE SC SCH (10:04)
[2021-11-05] MEDS: Aspirin 81 mg Enteric Coated Tablet PER TUBE SCH (10:04)
[2021-11-05] MEDS: VANCOMYCIN 1.25 GM/250 ML BAG 1.25 GM in Premix Bag 1 BAG IVPB SCH ×2 (10:05→20:31)
[2021-11-05] MEDS: Micafungin 100 MG in Sodium Chloride 0.9% 100 ML IVPB SCH (10:05)
[2021-11-05] MEDS: Lansoprazole 3 MG/ML ORAL SUSPENSION PER TUBE SCH (10:05)
[2021-11-05] MEDS: Fluticasone Propionate Nasal Spray 16 gm Bottle NASAL SCH ×2 (10:06→20:19)
[2021-11-05] MEDS: Oxymetazoline HCl 0.05% (30 ML BOT) NS SCH ×2 (10:06→20:22)
[2021-11-05 14:43] LABS: Potassium 3.7 mmol/L (3.5-5.1)
[2021-11-06 04:25] LABS: ALT (SGPT) 19 U/L (8-55); AST (SGOT) 23 U/L (5-34); Albumin 2.9 g/dL (3.4-4.8); Alkaline Phosphatase 87 U/L (40-110); Anion Gap 17 mmol/L (10-20); BUN (Urea Nitrogen) 14 mg/dL (9.8-20.1); Bilirubin, Total 0.8 mg/dL (0.2-1.2); Calc. Creatinine Clearance 105 mL/min (70-130); Calcium 8.7 mg/dL (7.8-10.44); Carbon Dioxide 26 mmol/L (23-31); Chloride 100 mmol/L (98-107); Estimated GFR 97; Globulin 3.5 g/dL (2.4-3.5); Glucose 127 mg/dL (83-110); Potassium 3.5 mmol/L (3.5-5.1); Protein, Total 6.4 g/dL (5.8-8.1); Sodium 139 mmol/L (136-145)
[2021-11-06 04:30] LABS: Mean Corpuscular Hemoglobin 29.4 pg (27.0-31.0); Mean Corpuscular Volume 91.9 fL (78.0-98.0); Mean Platelet Volume 9.8 fL (7.4-10.4); Platelet Count 181 thou/uL (130-400); RBC Distribution Width 15.1 % (11.5-14.5); White Blood Cell (WBC) Count 28.2 thou/uL (4.8-10.8)
[2021-11-06 04:31] LABS: Band 26 % (5-11); Lymphocytes 11 % (21-51); MDiff Complete? YES; Monocytes 18 % (0-10); Neutrophil 44 % (42-75); Nucleated RBC 1 % (0)
[2021-11-06] MEDS: Meropenem 1 GM in Sodium Chloride 0.9% 100 ML IVPB SCH ×3 (06:16→21:50)
[2021-11-06 07:22] LABS: Actual Bicarbonate (HCO3a) 31.2 mEq/L (22-28); Base Excess (BEa) 7.6 mEq/L (-2.0 to +3.0); CO2 Tension 40.1 mmHg (35.0-45.0); Calcium, Ionized (arterial) 1.09 mmol/L (1.12-1.30); Carboxyhemoglobin (COHb) 0.5 gm% (0.0-3.0); Hemoglobin (Hb) 11.3 g/dL (12.0-16.0); O2 Tension (PaO2), arterial 67.5 mmHg (> 70.0); Potassium - ABG Lab 3.44 mmol/L (3.70-5.30); pH, Arterial 7.51 (7.35-7.45)
[2021-11-06 07:54] LABS: ALV-art Gradient 167.575 mmHg (0-20); Puncture Site LRA
[2021-11-06] MEDS ORDERED: Potassium Bicarbonate/Cit Ac 20 MEQ TAB PER TUBE SCH (08:00)
[2021-11-06] MEDS: Enoxaparin Sodium 40 MG/0.4 ML SYRINGE SC SCH (08:53)
[2021-11-06] MEDS: Aspirin 81 mg Enteric Coated Tablet PER TUBE SCH (08:53)
[2021-11-06] MEDS: Oxymetazoline HCl 0.05% (30 ML BOT) NS SCH (08:54)
[2021-11-06] MEDS: Lansoprazole 3 MG/ML ORAL SUSPENSION PER TUBE SCH (08:54)
[2021-11-06] MEDS: Fluticasone Propionate Nasal Spray 16 gm Bottle NASAL SCH ×2 (08:54→21:03)
[2021-11-06] MEDS: VANCOMYCIN 1.25 GM/250 ML BAG 1.25 GM in Premix Bag 1 BAG IVPB SCH ×2 (08:55→21:55)
[2021-11-06] MEDS: Micafungin 100 MG in Sodium Chloride 0.9% 100 ML IVPB SCH (10:41)
[2021-11-06 20:18] LABS: Vancomycin, Trough 17.3 ug/mL
[2021-11-07 04:39] LABS: Anion Gap 13 mmol/L (10-20); BUN (Urea Nitrogen) 16 mg/dL (9.8-20.1); Calc. Creatinine Clearance 103 mL/min (70-130); Calcium 8.7 mg/dL (7.8-10.44); Carbon Dioxide 27 mmol/L (23-31); Chloride 100 mmol/L (98-107); Estimated GFR 99; Glucose 131 mg/dL (83-110); Potassium 3.8 mmol/L (3.5-5.1); Sodium 136 mmol/L (136-145)
[2021-11-07 04:54] LABS: Band 13 % (5-11); Hemoglobin 9.6 g/dL (12.0-16.0); Hypochromia SLIGHT = 6-15 cells (100X) (0-5/hpf); Lymphocytes 8 % (21-51); MDiff Complete? YES; Mean Corpuscular HGB CONC 31.6 g/dL (32.0-36.0); Mean Corpuscular Hemoglobin 29.3 pg (27.0-31.0); Mean Corpuscular Volume 92.7 fL (78.0-98.0); Mean Platelet Volume 9.8 fL (7.4-10.4); Metamyelocyte 2 % (0-0); Monocytes 25 % (0-10); Neutrophil 51 % (42-75); Nucleated RBC 1 % (0); Platelet Count 167 thou/uL (130-400); Platelet Morphology Comment Appears Adequate; RBC Distribution Width 15.5 % (11.5-14.5); Reactive Lymphocytes 1 % (0-10); Red Blood Cell (RBC) Count 3.26 mill/uL (4.20-5.40)
[2021-11-07] MEDS: Meropenem 1 GM in Sodium Chloride 0.9% 100 ML IVPB SCH (05:56)
[2021-11-07 06:46] VITALS: BP 138/77
[2021-11-07 07:05] LABS: Actual Bicarbonate (HCO3a) 30.1 mEq/L (22-28); Base Excess (BEa) 6.3 mEq/L (-2.0 to +3.0); CO2 Tension 39.9 mmHg (35.0-45.0); Calcium, Ionized (arterial) 1.14 mmol/L (1.12-1.30); Carboxyhemoglobin (COHb) 0.1 gm% (0.0-3.0); Hemoglobin (Hb) 10.2 g/dL (12.0-16.0); O2 Tension (PaO2), arterial 78.2 mmHg (> 70.0); Potassium - ABG Lab 3.45 mmol/L (3.70-5.30)
[2021-11-07 07:18] LABS: ALV-art Gradient 157.125 mmHg (0-20); Puncture Site LRA
[2021-11-07] MEDS: Enoxaparin Sodium 40 MG/0.4 ML SYRINGE SC SCH (08:33)
[2021-11-07] MEDS: Lansoprazole 3 MG/ML ORAL SUSPENSION PER TUBE SCH (08:33)
[2021-11-07] MEDS: VANCOMYCIN 1.25 GM/250 ML BAG 1.25 GM in Premix Bag 1 BAG IVPB SCH (08:34)
[2021-11-07 08:53] VITALS: TEMP 97.8
[2021-11-07] MEDS ORDERED: Aspirin Chewable 81 MG TAB PER TUBE SCH (09:00)
== END 2021-11-07 10:03 | disposition hospice, inpatient (51) | DRG 870 ==
LOC: ERS 13:12 → SURG A 15:52 → CCU 10-25 10:34
PROVIDERS: ADMIT Family Medicine; ATTEND Internal Medicine
PROC: 3E03329 Introduction of Other Anti-infective into Peripheral Vein, Percutaneous Approach (ICD-10-PCS; principal; 2021-10-24)
PROC: 5A1955Z Respiratory Ventilation, Greater than 96 Consecutive Hours (ICD-10-PCS; 2021-10-26)
PROC: 0BH18EZ Insertion of Endotracheal Airway into Trachea, Via Natural or Artificial Opening Endoscopic (ICD-10-PCS; 2021-10-26)
PROC: 0B9D8ZX Drainage of Right Middle Lung Lobe, Via Natural or Artificial Opening Endoscopic, Diagnostic (ICD-10-PCS; 2021-10-26)
PROC: 0D9670Z Drainage of Stomach with Drainage Device, Via Natural or Artificial Opening (ICD-10-PCS; 2021-10-26)
DX: A41.9 Sepsis, unspecified organism (principal); G93.41 Metabolic encephalopathy; J15.9 Unspecified bacterial pneumonia; J80 Acute respiratory distress syndrome; I63.513 Cerebral infarction due to unspecified occlusion or stenosis of bilateral middle cerebral arteries; J45.901 Unspecified asthma with (acute) exacerbation; E87.2 Acidosis; N17.9 Acute kidney failure, unspecified; Z51.5 Encounter for palliative care; Z66 Do not resuscitate; Z20.822 Contact with and (suspected) exposure to COVID-19; E87.5 Hyperkalemia; G35 Multiple sclerosis; E86.0 Dehydration; M19.90 Unspecified osteoarthritis, unspecified site; Z96.651 Presence of right artificial knee joint; Z88.1 Allergy status to other antibiotic agents; Z79.899 Other long term (current) drug therapy; Z87.01 Personal history of pneumonia (recurrent); Z98.890 Other specified postprocedural states; Z82.49 Family history of ischemic heart disease and other diseases of the circulatory system; Z78.1 Physical restraint status
CPT/HCPCS: 36415; 36416; 36600; 70450; 70551; 71045; 71275; 80048; 80053; 80202; 82140; 82805; 83605; 83690; 83735; 83880; 84100; 84145; 84484; 85025; 85652; 86140; 87040; 87070; 87205; 93005; 93010; 93306; 94002; 94003; 94640; 96365; 96367; C9113; J0456; J0692; J0696; J1650; J2060; J2185; J2248; J2250; J2270; J2704; J2920; J3010; J3370; J3475; J3480; J3490; J7050; J7620; U0002; U0003; U0005

== ENCOUNTER 2021-11-07 10:41 | Inpatient (IN) | payer OTHER ==
[2021-11-07] MEDS ORDERED: Bisacodyl 10 MG SUPP PR PRN (12:26)
[2021-11-07] MEDS ORDERED: diphenhydrAMINE 25 MG CAP PO PRN (12:30)
[2021-11-07] MEDS ORDERED: Haloperidol Lactate 5 MG/ML VIAL SLOW IVP PRN (12:30)
[2021-11-07] MEDS ORDERED: Ondansetron PF 4 MG/2 ML Vial IVP PRN (12:30)
[2021-11-07] MEDS ORDERED: Scopolamine 1.5 mg/72 hour Patch TOP PRN (12:30)
[2021-11-07] MEDS ORDERED: Promethazine HCl 25 MG SUPP PR PRN (12:30)
[2021-11-07] MEDS: Morphine 4 MG/ML VIAL SLOW IVP PRN ×4 (13:02→23:25)
[2021-11-07] MEDS ORDERED: diphenhydrAMINE 50 MG/ML VIAL IVP PRN (13:04)
[2021-11-08 01:55] VITALS: BMI 23.1
[2021-11-08] MEDS: Morphine 4 MG/ML VIAL SLOW IVP PRN ×3 (06:17→11:15)
[2021-11-08] MEDS ORDERED: Scopolamine 1.5 mg/72 hour Patch TOP PRN (08:15)
[2021-11-08] MEDS ORDERED: Acetaminophen 650 MG Suppository PR PRN (08:15)
[2021-11-08] MEDS: Lorazepam 2 MG/ML VIAL SLOW IVP PRN ×2 (08:21→12:13)
[2021-11-08 08:23] VITALS: BP 127/72
[2021-11-08] MEDS: Atropine Sulfate 1% Ophth Soln 5 ml Bottle FS PRN ×2 (09:04→11:16)
[2021-11-08 10:46] VITALS: TEMP 99
== END 2021-11-08 15:21 | disposition expired | DRG 951 ==
LOC: CCU 10:41 → MSONC 15:03
PROVIDERS: ADMIT Family Medicine; ATTEND Family Medicine
DX: Z51.5 Encounter for palliative care (principal); A41.9 Sepsis, unspecified organism; J18.9 Pneumonia, unspecified organism; J80 Acute respiratory distress syndrome; Z66 Do not resuscitate; Z20.822 Contact with and (suspected) exposure to COVID-19; M19.90 Unspecified osteoarthritis, unspecified site; G35 Multiple sclerosis; G70.00 Myasthenia gravis without (acute) exacerbation; J45.909 Unspecified asthma, uncomplicated; Z95.2 Presence of prosthetic heart valve; Z88.1 Allergy status to other antibiotic agents
CPT/HCPCS: 94640; J2060; J2270; J7620